=== PATIENT | male | born 1990 | race African-American/Black ===

== ENCOUNTER 2020-03-06 14:48 | Emergency (ER) | payer MEDICAID, SELFPAY ==
[2020-03-06 14:56] VITALS: BP 139/79; PULSE 69; RESP 16; TEMP 36.3; O2SAT 99
--- NOTE | 2020-03-06 15:18 | ED.GENADULT ---
HPI - General Adult General Chief complaint: Extremity Problem,Nontraumatic Stated complaint: rt hand tingling/numbness Time Seen by Provider: 03/06/20 15:18 Source: patient and RN notes reviewed Mode of arrival: ambulatory Limitations: no limitations History of Present Illness HPI narrative: 29-year-old -[place] male presents with complaints of intermittent right hand and fingers numbness and tingling for the past 2 days. Increase symptoms over the past 24 hours, Domingo says he he almost dropped a gallon of milk today. No treatment. No known injuries. Works and does repetitive motions for 8 hours 4-5 days a week. Pain radiates into 2nd-4th fingers. No immobility, suspected foreign body, or abuse. Exacerbating factors consist of repetitive movement. The relieving factor is rest. The dominant hand is the Right hand. Denies fever or chills. Remains active. The patient reports he have not been diagnosed with COVID-19. The patient reports he is not waiting for the results of a COVID-19 lab test. The patient reports he do not have weakness or fatigue. The patient reports he do not have a new or worsening cough or shortness of breath. Denies chest pain. The patient reports he do not have any rhinorrhea, congestion, loss of taste, sore throat, nausea, vomiting, abdominal pain, and diarrhea. Tolerating po intake well. Denies recent traveling. Denies concerns for COVID-19 or exposures been home with limited outdoor exposure except for essential household needs, work, and return home. At this time, patient is not suspected of having COVID-19. Some parts of this dictation were generated by voice recognition software and may contain typographical and/or grammatical inaccuracies. Related Data Home Medications Medication Instructions Recorded Confirmed No Home Medications 03/06/20 03/06/20 Allergies Allergy/AdvReac Type Severity Reaction Status Date / Time No Known Allergies Allergy Verified 03/06/20 15:04 Review of Systems Review of Systems: Narrative: CONSTITUTIONAL: Denies fever, chills, sweats. EYES: Denies visual changes, redness, discharge. ENT: Denies rhinorrhea, congestion, sore throat, otalgia. CARDIOVASCULAR: Denies chest pain, palpitations, edema. RESPIRATORY: Denies dyspnea, wheezing, cough. GASTROINTESTINAL: Denies abdominal pain, nausea, vomiting, diarrhea. SKIN: Denies rash or itching. MUSCULOSKELETAL: Denies acute back pain or myalgia. Complains of intermittent right hand and fingers numbness and tingling. NEUROLOGIC: Denies numbness or focal weakness. PSYCHIATRIC: Denies anxiety or depression. Allergic/Immunologic: Comments: At time of signature, agree with nurse past medical, surgical, social, and family history. There is relevant patient's past medical history pertinent to the presenting complaint, no relevant family history pertinent to the presenting complaint. [facility] Past Medical History Medical History (Updated 03/06/20 @ 17:17 by PATRICK Walter) Injury, hand tendon to RT hand Surgical History Surgical History (Updated 03/06/20 @ 17:17 by PATRICK Walter) No significant past surgical history Family History Family History (Updated 03/06/20 @ 17:19 by PATRICK Walter) Father Alive and well Mother Alive and well Grandparent Hypertension Diabetes mellitus Social History Social History (Updated 03/06/20 @ 17:30 by PATRICK Walter) Smoking status: Former smoker Tobacco type: cigarettes Second hand tobacco smoke exposure: No Smoking end date: 05/11/09 Alcohol intake: current Substance use: never Living arrangements: with family Occupation/Education: occupation Gender identity (if verbalized by the patient): Male Sexual Orientation (if Verbalized by the Patient): Straight or Heterosexual Comments At time of signature, agree with nurse past medical, surgical, social, and family history. There is no relevant
== END 2020-03-06 15:42 | disposition home or self-care (01) ==
PROVIDERS: Emergency Provider Nurse Practitioner Family
DX: M77.8 Other enthesopathies, not elsewhere classified (principal); Z87.891 Personal history of nicotine dependence
CPT/HCPCS: 99211; G0463

== ENCOUNTER 2021-10-17 18:58 | Emergency (ER) | payer MEDICAID, SELFPAY ==
[2021-10-17 19:11] VITALS: BP 125/87; PULSE 90; RESP 20; TEMP 37; O2SAT 99
--- NOTE | 2021-10-17 19:50 | PC.NURSE ---
[place] PD officer brings pt in. States pt arrived to the police station stating he needed to have a restraining order against himself due to having thoughts of harming his s/o. Officer has multiple text from pt to s/o making threatening statements like Enjoy this weekend it is your last PD states roomate removed guns pt had access to. Pt is ex [employer] and has a hx of PTSD according to officer. Upon assessment pt denied SI to this RN.
--- NOTE | 2021-10-17 20:11 | ED.PSYCH ---
HPI - Psych General Chief Complaint: Psychiatric Symptoms <Virginie Ruiz PA-C - Last Filed: 10/18/21 02:56> Stated Complaint: mental health eval <Virginie Ruiz PA-C - Last Filed: 10/18/21 02:56> Time Seen by Provider: 10/17/21 19:41 <Virginie Ruiz PA-C - Last Filed: 10/18/21 02:56> Source: patient <Virginie Ruiz PA-C - Last Filed: 10/18/21 02:56> Mode of arrival: ambulatory <Virginie Ruiz PA-C - Last Filed: 10/18/21 02:56> Limitations: no limitations <Virginie Ruiz PA-C - Last Filed: 10/18/21 02:56> History of Present Illness HPI Narrative: This is a 31 year old male that presents to the ER for homicidal ideations. Presents via PD as patient was threatening to kill someone. Reports history of psychiatric hospitalization for attempting to harm someone else. He has no complaints currently. Denies suicidal ideations or visual or auditory hallucinations. <Virginie Ruiz PA-C - Last Filed: 10/18/21 02:56> Related Data Home Medications: Home Medications Medication Instructions Recorded Confirmed No Home Medications 03/06/20 03/06/20 <Virginie Ruiz PA-C - Last Filed: 10/18/21 02:56> Allergies/Adverse Reactions: Allergies Allergy/AdvReac Type Severity Reaction Status Date / Time No Known Allergies Allergy Verified 03/06/20 15:04 <Virginie Ruiz PA-C - Last Filed: 10/18/21 02:56> Review of Systems Review of Systems: CONSTITUTIONAL: Denies fever PSYCHIATRIC: Denies anxiety or depression. <Virginie Ruiz PA-C - Last Filed: 10/18/21 02:56> All systems reviewed & are unremarkable except as noted in HPI and below <Virginie Ruiz PA-C - Last Filed: 10/18/21 02:56> [facility] Past Medical History Medical History: Medical History (Updated 10/18/21 @ 02:55 by Virginie L. Ruiz, PA-C) Injury, hand tendon to RT hand <Virginie Ruiz PA-C - Last Filed: 10/18/21 02:56> Surgical History Surgical History: Surgical History (Updated 03/06/20 @ 17:17 by PATRICK Walter) No significant past surgical history <Virginie Ruiz PA-C - Last Filed: 10/18/21 02:56> Family History Family History: Family History (Updated 03/06/20 @ 17:19 by PATRICK Walter) Father Alive and well Mother Alive and well Grandparent Hypertension Diabetes mellitus <Virginie Ruiz PA-C - Last Filed: 10/18/21 02:56> Social History Social History: Social History (Updated 03/06/20 @ 17:30 by PATRICK Walter) Smoking status: Former smoker Tobacco type: cigarettes Second hand tobacco smoke exposure: No Smoking end date: 05/11/09 Alcohol intake: current Substance use: never Substance use type: does not use Gender identity (if verbalized by the patient): Male Sexual Orientation (if Verbalized by the Patient): Straight or Heterosexual <Virginie Ruiz PA-C - Last Filed: 10/18/21 02:56> Exam Narrative: GENERAL: Well-appearing, well-nourished, and in no acute distress. HEAD: Normocephalic, atraumatic. EYES: EOMI. CHEST: Clear to auscultation. No respiratory distress. No wheezes rales or rhonchi HEART: Regular rate and rhythm. No murmur heard. Normal peripheral pulses. EXTREMITIES: Normal range of motion. No edema. SKIN: Warm, dry, no rash. NEURO: No focal deficits. Alert and oriented x3. PSYCH: Flat mood and affect <Virginie Ruiz PA-C - Last Filed: 10/18/21 02:56> Course Reevaluation(s) Reevaluation #1: PAtient has been accepted to [facility] by DR. Rothman. He is been resting comfortable. He has been cooperative <May Santoyo MD - Last Filed: 10/18/21 17:00> Date: 10/18/21 <May Santoyo MD - Last Filed: 10/18/21 17:00> Time: 13:44 <May Santoyo MD - Last Filed: 10/18/21 17:00> Consultations Consultation #1: Patient was evaluated by crisis. Will be involuntary admission. Awaiting placement <Virginie Ruiz PA-C - Last Filed:
[2021-10-17 20:28] LABS: Basophils Absolute Auto 0.1 K/mm3 (0.0-0.1); Basophils Percent Auto 0.7 % (0.2-1.2); Eosinophils Absolute Auto 0.1 K/mm3 (0-0.3); Eosinophils Percent Auto 0.6 % (0-4.4); Hematocrit 46.9 % (42.0-52.0); Hemoglobin 15.6 g/dL (14.0-18.0); Immature Granulocyte Absolute 0.02 K/mm3 (0.00-0.031); Immature Granulocyte Percent A 0.2 % (0-0.5); Lymphocytes Absolute Auto 2.95 K/mm3 (0.9-3.2); Lymphocytes Percent Auto 29.6 % (18.3-44.2); Mean Corpuscular HGB Conc 33.3 g/dl (32-36); Mean Corpuscular Hemoglobin 29.2 pg (26-34); Mean Corpuscular Volume 87.7 fl (80-100); Mean Platelet Volume 10.5 fl (7.4-10.4); Monocytes Absolute Auto 0.9 K/mm3 (0.1-0.6); Monocytes Percent Auto 8.5 % (2.6-8.5); Neutrophils Percent Auto 60.4 % (45.5-73.1); Platelet Count Result 274 k/mm3 (150-375); Red Blood Count 5.35 M/mm3 (4.6-6.20); Red Cell Distribution Width 13.2 % (11.5-14.5)
[2021-10-17 20:34] LABS: Acetaminophen < 10 ug/mL (10-30); Ethanol < 10 mg/dL (<10); Salicylate < 1.0 mg/dL (2-20)
[2021-10-17 20:46] LABS: Alanine Aminotransferase 35 U/L (6-50); Albumin Level 5.5 g/dL (3.5-5.1); Alkaline Phosphatase 103 U/L (38-126); Anion Gap 9 mmol/L (8-16); Aspartate Amino Transferase 33 U/L (17-59); Bilirubin,Total 0.6 mg/dL (0.2-1.3); Blood Urea Nitrogen 14 mg/dL (9-20); Calcium 9.5 mg/dL (8.4-10.2); Carbon Dioxide 29 mmol/L (22-30); Chloride 104 mmol/L (98-107); Estimated CRCL calculation 96 ml/min; Estimated Glomerular Filt Rate > 60; Glucose 101 mg/dL (65-110); Potassium 4.1 mmol/L (3.4-5.0); Sodium 142 mmol/L (137-145)
[2021-10-17 20:48] LABS: SARS-CoV-2 RNA PCR Negative
[2021-10-17 21:16] LABS: Thyroid Stimulating Hormone 0.876 uIU/mL (0.465-4.680)
[2021-10-17 22:07] LABS: Appearance Urine Clear (Clear); Bilirubin Urine 1+ (Negative); Blood Urine Negative (Negative); Color Urine Yellow (Yellow); Glucose Urine UA Negative (Negative); Ketones Urine Trace mg/dL (Negative); Leukocyte Esterase Ur Negative LEU/UL (Negative); Nitrate Urine Negative (Negative); Protein Urine Negative (Negative); Specific Grav Ur >= 1.030 (1.001-1.035); Urobilinogen Urine 0.2 mg/dL (<2.0); pH Urine 5.5 (5.0-9.0)
[2021-10-17 22:13] LABS: Mucus Urine Heavy /lpf; Squamous Epithelial Cell Urine Rare /hpf (Few); WBC Urine 0-3 /hpf
[2021-10-17 22:28] LABS: Add Urine Microscopic? YES
[2021-10-17 23:18] LABS: Barbiturate Screen Urine Negative (Negative); Benzodiazepines Screen Urine Negative (Negative)
[2021-10-17 23:26] LABS: Amphetamine Screen Urine Negative (Negative); Cannabinoid Screen Urine Negative (Negative); Cocaine Screen Urine Negative (Negative); Methadone Screen Urine Negative (Negative); Opiate Screen Urine Negative (Negative); Phencyclidine Screen Urine Negative (Negative)
--- NOTE | 2021-10-17 23:44 | PC.NURSE ---
Spoke with Tiana from [facility] at this time for an evaluation. Said they will come and evaluate.
--- NOTE | 2021-10-18 03:01 | PC.NURSE ---
sitter at bedside for elopement possibility
[2021-10-18 04:18] VITALS: BP 119/68; PULSE 60; TEMP 36.6; O2SAT 95
--- NOTE | 2021-10-18 04:25 | PC.NURSE ---
Spoke with a sales representative supervisor from [facility] at this time. Wanted information/background on the patient.
--- NOTE | 2021-10-18 04:41 | PC.NURSE ---
After speaking with Crisis, patient has changed their mind and will be admitted voluntary.
--- NOTE | 2021-10-18 05:33 | PC.NURSE ---
VOLUNTARY FORM SIGNED BY PATIENT AT THIS TIME. FAXED TO [facility].
--- NOTE | 2021-10-18 05:58 | PC.NURSE ---
EDP Dr. Corbett made aware of [facility]. Says a sitter is still required at this time.
--- NOTE | 2021-10-18 06:02 | PC.NURSE ---
Spoke with [facility] who stated the patient does not meet criteria to be accepted there.
--- NOTE | 2021-10-18 06:37 | PC.NURSE ---
Spoke with [facility] at the this time. Asked if we could sent over the patients chart.
[2021-10-18 06:57] VITALS: BP 113/67; PULSE 53; RESP 18; TEMP 36.9; O2SAT 100
--- NOTE | 2021-10-18 07:26 | PC.NURSE ---
pt resting w/ equal chest rise and fall. sitter at bedside. no request at this time.
--- NOTE | 2021-10-18 09:14 | PC.NURSE ---
Safety Breakfast tray ordered.
[2021-10-18 10:01] VITALS: BP 131/70; PULSE 80; RESP 16; TEMP 36.8; O2SAT 98
--- NOTE | 2021-10-18 10:22 | PC.NURSE ---
Faxed to [facility]' a face sheet & faxed to [facility] copy of labs.
--- NOTE | 2021-10-18 11:07 | PC.NURSE ---
[facility] were faxed pt's chart
--- NOTE | 2021-10-18 12:02 | PC.NURSE ---
[facility] called and states pt has been accepted at [facility]. Re-faxed Voluntary paperwork to [facility] per their request. phone number for nurse to nurse report is [phone].
--- NOTE | 2021-10-18 12:09 | PC.NURSE ---
attempted to call report to [facility], nurse not available at this time, will call back.
[2021-10-18 16:15] VITALS: BP 134/73; PULSE 87; RESP 18; O2SAT 98
== END 2021-10-18 16:15 ==
PROVIDERS: Emergency Medicine; Emergency Provider General Practice
DX: R45.850 Homicidal ideations (principal); Z87.891 Personal history of nicotine dependence; Z20.822 Contact with and (suspected) exposure to COVID-19
CPT/HCPCS: 36415; 80053; 80307; 81001; 84443; 85025; 99285; C9803; U0003; U0005